=== PATIENT | female | born 1995 | race Caucasian/White ===

== ENCOUNTER 2021-03-13 14:24 | Emergency (ER) | payer MEDICAID ==
[~2021-03-13] VITALS: Ht 162.6 cm; Wt 68.2 kg
[2021-03-13 16:30] VITALS: BP 104/73
== END 2021-03-13 16:42 | disposition home or self-care (01) ==
LOC: EMS 14:32
DX: F19.10 Other psychoactive substance abuse, uncomplicated (principal); F31.9 Bipolar disorder, unspecified; F17.210 Nicotine dependence, cigarettes, uncomplicated
CPT/HCPCS: 99283; Z7502